=== PATIENT | female | born 1990 | race Caucasian/White ===

== ENCOUNTER 2016-11-08 03:58 | Emergency (ER) | payer BC, OTHER ==
[2016-11-08 04:51] LABS: ABSOLUTE EOSINOPHILS # (AUTO) 0.1 10^3/uL (0.0-0.6); ABSOLUTE LYMPHOCYTES (AUTO) 2.4 10^3/uL (0.5-4.7); ABSOLUTE MONOCYTES (AUTO) 0.7 10^3/uL (0.1-1.4); ABSOLUTE NEUT (AUTO) 6.4 10^3/uL (1.7-8.2); BASOPHILS % (AUTO) 0.5 % (0-2); EOSINOPHILS % (AUTO) 1.5 % (0-6); HEMATOCRIT 39.4 % (36.0-47.0); HEMOGLOBIN 13.3 g/dL (12.0-15.5); HGB HCT DIFFERENCE 0.5; LYMPHOCYTES % (AUTO) 25.1 % (13-45); MEAN CORPUSCULAR HEMOGLOBIN 29.1 pg (27.0-33.4); MEAN CORPUSCULAR HGB CONC 33.6 g/dL (32.0-36.0); MEAN CORPUSCULAR VOLUME 87 fl (80-97); MONOCYTES % (AUTO) 7.2 % (3-13); RED BLOOD COUNT 4.55 10^6/uL (3.72-5.28); RED CELL DISTRIBUTION WIDTH 13.7 % (11.5-14.0); SEGMENTED NEUTROPHILS % (AUTO) 65.7 % (42-78); WHITE BLOOD COUNT 9.8 10^3/uL (4.0-10.5)
[2016-11-08 04:54] LABS: APPEARANCE,URINE SLIGHTLY-CLOUDY; BILIRUBIN,URINE NEGATIVE (NEGATIVE); GLUCOSE, URINE NEGATIVE (NEGATIVE); KETONES,URINE NEGATIVE (NEGATIVE); LEUKOCYTE ESTERASE,URINE NEGATIVE (NEGATIVE); NITRITE,URINE NEGATIVE (NEGATIVE); PROTEIN,URINE NEGATIVE (NEGATIVE); URINE SPECIFIC GRAVITY 1.011; UROBILINOGEN,URINE NEGATIVE mg/dL (<2.0)
--- NOTE | 2016-11-08 04:59 | ER Document Report ---
ED General - General Chief Complaint: Vaginal Pain Stated Complaint: ABDOMINAL PAIN Time Seen by Provider: 11/08/16 04:08 Notes: Patient is a 26-year-old female presents with complaint of pain in the upper abdomen as well as some pain in the suprapubic region that radiates to her back. She has had some dysuria. Pain in her upper abdomen started approximately week ago. This started after she began antibiotics. She is started the antibiotics and her pain developed 1 day later the pain continued while taking antibiotics. She just finished last antibiotic yesterday. She is on antibiotics for potential tooth infection. There were given to her by her dentist. Her lower abdominal pain and dysuria started approximately 3 days ago. No abnormal vaginal discharge. No bleeding. Menstrual period was approximately 6 weeks ago. Her menstrual periods are usually very regular. She has been on control but she is no longer on control due to her and her trying to get . Last time she was on control approximately 2 years ago. TRAVEL OUTSIDE OF THE [place] IN LAST 30 DAYS: No - Related Data Allergies/Adverse Reactions: No Known Allergies Allergy (Verified 11/08/16 04:47) Past Medical History - General Last Menstrual Period: 09/27/16 - Social History Smoking Status: Never Smoker Chew tobacco use (# tins/day): No Frequency of alcohol use: None Drug Abuse: None Family History: None Patient has suicidal ideation: No Patient has homicidal ideation: No Pulmonary Medical History: Reports: Hx Tuberculosis - at 1 yr old Renal/ Medical History: Reports: Hx Ovarian Cysts. Denies: Hx Peritoneal Dialysis Past Surgical History: Reports: Hx Oral Surgery, Hx Tonsillectomy - Immunizations Hx Diphtheria, Pertussis, Tetanus Vaccination: Yes Review of Systems - Review of Systems Notes: My Normal Review Basic REVIEW OF SYSTEMS: CONSTITUTIONAL : Denies fever, chills, or sweats. Denies recent illness. RESPIRATORY: Denies cough, cold, or chest congestion. Denies shortness of breath, difficulty breathing, or wheezing. GASTROINTESTINAL: Consider abdominal pain. Denies nausea, vomiting, or diarrhea. Denies constipation. Last BM: GENITOURINARY: Mild dysuria FEMALE GENITOURINARY: Irregular menstrual periods. Some vaginal pain. MUSCULOSKELETAL: Denies neck or back pain or joint pain or swelling. SKIN: Denies rash or skin lesions. NEUROLOGICAL: Denies altered mental status or loss of consciousness. Denies headache. Denies weakness or paralysis or loss of use of either side. Denies problems with gait or speech. Denies sensory or motor loss. ALL OTHER SYSTEMS REVIEWED AND NEGATIVE. Physical Exam - Vital signs Vitals: Temp Pulse Resp BP Pulse Ox 97.7 F 75 16 122/80 96 11/08/16 04:03 11/08/16 04:03 11/08/16 04:03 11/08/16 04:03 11/08/16 04:03 - Notes Notes: General Appearance: Well nourished, alert, cooperative, no acute distress, mild obvious discomfort. Vitals: reviewed, See vital signs table. Head: no swelling or tenderness to the head Eyes: PERRL, EOMI, Conjuctiva clear Mouth: No decreasd moisture Lungs: No wheezing, No rales, No rhonci, No accessory muscle use, good air exchange bilaterally. Heart: Normal rate, Regular rythm, No murmur, no rub Abdomen: Normal BS, soft, No rigidity, mild to moderate epigastric and lower abdominal tenderness to palpation, No guarding, no rebound, no abdominal masses , no organomegaly Pelvic: Normal external genitalia. No abnormal discharge. No blood in vaginal vault. Some pain during pelvic exam. Extremities: strength 5/5 in all extremities, good pulses in all extremities, no swelling or tenderness in the extremities, no edema. Skin: warm, dry, appropriate color, no rash Neuro: speech clear, oriented x 3, normal affect, responds appropriately to questions. Course - Vital Signs Vital signs: Temp Pulse Resp BP Pulse Ox 97.7 F 75 16 122/80 96 11/08/16 04:03 11/08/16 04:03 11/08/16 04:03 11/08/16 04:03 11/08/16 04:03 - Laboratory Result Diagrams: 11/08/16 04:30 11/08/16 04:30 - Transfer of Care Notes: 11/08/16 05:41 That causes the patient's abdominal pain is not clear. I suspect that the upper burning type epigastric pain is probably related to gastritis. Patient admits to taking NSAIDs recently and also being on antibiotics for several days for tooth infection. Patient's lower pain into her pelvic region may be related to oncoming.. She has history of very irregular periods. Pain is suprapubic in rating to her back. Her urine and pelvic exam are currently normal. I see no signs of infection. Will place her on pain medicine as well as Prilosec. I encouraged her follow-up with a floors buffer. Encouraged to return to the ER if she has worsening pain, fevers, vomiting, or feels unwell. I informed her this does not take NSAID medication such as ibuprofen or Motrin or Aleve. I told her Tylenol is okay. Patient agrees with plan will be discharged home. Dictation of this chart was performed using voice recognition software; therefore, there may be some unintended grammatical errors. Discharge - Discharge Clinical Impression: Vaginal pain Abdominal pain Qualifiers: Abdominal location: lower abdomen, unspecified Qualified Code(s): R10.30 - Lower abdominal pain, unspecified Condition: Good Disposition: HOME, SELF-CARE Instructions: Oral Narcotic Medication ([facility]) Additional Instructions: Please return to the ER immediately if you develop worsening pain, fevers, vomiting, or feel unwell. Please follow up with your floors buffer for reevaluation if you have recurrent pain after 3 days. Please take the medications as prescribed. Prescriptions: Tramadol HCl [Ultram 50 mg Tablet] 50 mg PO Q6HP PRN #15 tablet PRN Reason: Omeprazole Magnesium [Prilosec Otc] 20 mg PO DAILY #20 tablet.
[2016-11-08 05:02] LABS: ALANINE AMINOTRANSFERASE 28 U/L (9-52); ALBUMIN 4.3 g/dL (3.5-5.0); ALKALINE PHOSPHATASE 102 U/L (38-126); ANION GAP 14 (5-19); ASPARTATE AMINO TRANSFERASE 20 U/L (14-36); BILIRUBIN,DIRECT 0.2 mg/dL (0.0-0.4); BILIRUBIN,TOTAL 0.3 mg/dL (0.2-1.3); BLOOD UREA NITROGEN 15 mg/dL (7-20); CALCIUM 9.4 mg/dL (8.4-10.2); CARBON DIOXIDE 25 mmol/L (22-30); CHLORIDE 104 mmol/L (98-107); CREATININE RESULT 0.88 mg/dL (0.52-1.25); GLUCOSE 98 mg/dL (75-110); LIPASE 172.1 U/L (23-300); POTASSIUM 4.4 mmol/L (3.6-5.0); SODIUM 142.9 mmol/L (137-145); TOTAL PROTEIN 7.3 g/dL (6.3-8.2)
[2016-11-08] MEDS ORDERED: TRAMADOL HCL 50 MG TABLET PO ONE (05:34)
[2016-11-08] MEDS ORDERED: FAMOTIDINE 20 MG TABLET PO ONE (05:34)
[2016-11-08 05:58] VITALS: BP 113/70
[2016-11-08 06:35] LABS: CHLAM PCR NOT DETECTED (NOT DETECT)
== END 2016-11-08 06:00 | disposition home or self-care (01) ==
LOC: ER 03:58
DX: R10.2 Pelvic and perineal pain (principal); R10.30 Lower abdominal pain, unspecified; R10.13 Epigastric pain; R30.0 Dysuria
CPT/HCPCS: 36415; 80053; 81001; 81025; 83690; 85025; 87210; 87491; 87591; 99283